=== PATIENT | female | born 1960 | race Caucasian/White ===

== ENCOUNTER 2022-05-16 09:25 | Outpatient (CLI) | payer OTHER, SELFPAY ==
[2022-05-16 14:30] LABS: Ferritin* 32.9 ng/mL (11.1-264.0)
== END 2022-05-16 09:26 | disposition home or self-care (01) ==
LOC: LONREF 09:26
PROVIDERS: PCP Family Medicine; Visit Provider Family Medicine
DX: I10 Essential (primary) hypertension (principal); G25.81 Restless legs syndrome
CPT/HCPCS: 82728

== ENCOUNTER 2022-07-13 12:52 | Emergency (ER) | payer OTHER, SELFPAY ==
[2022-07-13 13:18] VITALS: BP 148/90; PULSE 87; RESP 18; TEMP 37.4; O2SAT 96; BMI 27.0
--- NOTE | 2022-07-13 14:24 | CRLHL7_ITS ---
For Patients: As a result of the Century Cures Act, medical imaging exams and procedure reports are released immediately into your electronic medical record. You may view this report before your referring provider. If you have questions, please contact your health care provider. Indication: Fall Comparison: None available. Technique: AP, Lateral, and Oblique views right ankle were obtained Findings: There is a minimally displaced fracture of the distal fibula. No other displaced fracture is appreciated. The ankle mortise is symmetrical. The talar dome is smooth and intact. The joint spaces are otherwise grossly preserved. There is moderate malleolar soft tissue swelling. Impression: Minimally displaced fracture of the distal fibula with moderate malleolar soft tissue swelling. Dictated by Jesse Sow MD @ 07/13/2022 3:04:40 PM (Electronically Signed)
--- NOTE | 2022-07-13 14:24 | ED_ITS ---
HPI - Fall General Chief Complaint: Fall/Minor Trauma Stated Complaint: Injured RT ankle Time Seen by Provider: 07/13/22 12:56 History of Present Illness HPI Narrative: This 62-year-old female comes in with an injury to her right ankle that occurred this morning. She was at home and stood up and began to walk. She started to feel lightheaded and was staggering a bit. She grabbed onto a railing to try to stabilize herself but had then brief loss of consciousness. She fell to the [facility] injuring her right ankle. Her came immediately thereafter and she recovered from her loss of consciousness quickly. She has pain in her right ankle and has not wanted to put weight on since this injury. As for the loss of consciousness she states that she has been feeling lightheaded over the past couple months since having her antihypertensive medicines increased. She has not had loss of consciousness till today. She does not report any chest pain or shortness of breath. She did get a COVID vaccination recently. Related Data Home Medications Medication Instructions Recorded Confirmed albuterol sulfate 90 mcg/actuation 2 puff inhalation Q4H PRN 05/11/22 06/14/22 aerosol inhaler (ProAir HFA) aspirin 81 mg capsule 81 mg PO QDAY 05/11/22 06/14/22 calcium citrate 315 mg 3 tab PO QDAY 05/11/22 06/14/22 calcium-vitamin D3 6.25 mcg (250 unit) tablet (Citracal + Vitamin D Maximum) cholecalciferol (vitamin D3) 25 25 mcg PO QDAY 05/11/22 06/14/22 mcg (1,000 unit) capsule fluticasone 500 mcg-salmeterol 50 1 inh inhalation DAILY 05/11/22 06/14/22 mcg/dose blistr powdr for inhalation (Advair Diskus) hydrochlorothiazide 25 mg tablet 25 mg PO QDAY 05/11/22 06/14/22 lansoprazole 30 mg capsule,delayed 30 mg PO QDAY 05/11/22 06/14/22 release (Prevacid) multivitamin 1 tab PO QDAY 05/11/22 06/14/22 nitroglycerin 0.4 mg sublingual 0.4 mg sublingual ONCE PRN 05/11/22 06/14/22 tablet (Nitrostat) oxybutynin chloride 5 mg tablet 5 mg PO QDAY 05/11/22 06/14/22 potassium chloride 20 mEq 20 meq PO QDAY 05/11/22 06/14/22 tablet,extended release(part/cryst) (Klor-Con M) pravastatin 40 mg tablet 40 mg PO . 05/11/22 06/14/22 trazodone 50 mg tablet 50 mg PO . 05/11/22 06/14/22 venlafaxine 150 mg 150 mg PO QDAY 05/11/22 06/14/22 capsule,extended release 24 hr (Effexor XR) clobetasol 0.05 % topical ointment 1 applic topical BID 05/16/22 06/14/22 Previous Rx's Medication Instructions Recorded alprazolam 0.5 mg tablet 0.5 mg PO TID PRN anxiety #30 tabs 05/14/22 losartan 100 mg tablet 100 mg PO QDAY #90 tabs 05/16/22 Cam Walker #1 ea 07/13/22 Crutches- Adult #1 ea 07/13/22 hydrocodone 5 mg-acetaminophen 325 1 tab PO Q4-6H PRN pain #20 tabs 07/13/22 mg tablet Allergies Allergy/AdvReac Type Severity Reaction Status Date / Time atorvastatin Allergy Mild mylagia Verified 06/14/22 09:36 cephalexin Allergy Unknown Verified 06/14/22 09:36 latex Allergy Unknown Verified 06/14/22 09:36 Penicillins Allergy Unknown Verified 06/14/22 09:36 Shellfish Allergy Severe Shortness Uncoded 06/14/22 09:36 of Breath Shellfish Allergy Allergy Severe SOB Uncoded 06/14/22 09:36 Penicillin Allergy Unknown Unknown Uncoded 06/14/22 09:36 Review of Systems Status of ROS: Reports: 10 or more systems reviewed and unremarkable except as noted in History and below Narrative: Constitutional: No fevers, no weight gain or loss. Eyes: No discharge. No vision changes. HENT: No congestion, no sore throat, no ear pain. Cardiovascular: No chest pain, no palpitations. Respiratory: No shortness of breath, no wheezes, no cough. Gastrointestinal: No abdominal pain, no vomiting, no diarrhea. Genitourinary: No dysuria, no hematuria. Musculoskeletal: Right ankle injury. Skin: No rashes, no pruritis. Neurological: No weakness, sensory change, speech change. Lightheaded episodes over the past couple months since increasing blood pressure medications. Endo/Heme/Allergies: No bruising or bleeding. No polydipsia. Pysch: no suicidality, no anxiety, no insomnia. All other systems reviewed and are negative. [facility] Medical History (Updated 07/13/22 @ 15:04 by Cristino Ramirez MD) Acute anal fissure History of alcohol abuse History of endometriosis Surgical History History of coronary artery stent placement (01/14/15) Status post appendectomy Status post cholecystectomy Status post hysterectomy with oophorectomy (10/2008) Status post shoulder surgery (2016) Status post wrist surgery Family History Other Breast cancer Diabetes Social History Smoking Status: Never smoker Do you use any of these nicotine containing products: None How often do you have a drink containing alcohol: monthly or less AUDIT-C Alcohol total score: 1 Non-prescribed substance use: denies use Exam Narrative: Exam Narrative: Constitutional: Well-developed, well-nourished, no acute distress. HEENT: Normocephalic, atraumatic. Neck: Normal range of motion. Nontender. Supple. Heart: Regular. No murmurs. Normal rate. Intact distal pulses. Lungs: Clear to auscultation. No chest discomfort. No wheezes, rhonchi, or rales. Abdomen: Normal bowel sounds. Nontender. No rebound tenderness. Genitalia: Deferred. Back: No midline tenderness. Normal range of motion. Extremities: Right ankle pain over the lateral malleolus. There is no sign of swelling, joint effusion, or joint instability. Skin: Intact. No rash. Warm. No erythema or pallor. Neurologic: No altered sensation. No weakness. Alert and oriented. Psychiatric: No suicidality. No anxiety or depression. No insomnia. Nursing notes and vitals signs are reviewed. Const: Vital Signs, click to edit/add: Vital Signs - 24 hr 07/13/22 13:18 Temperature 99.4 F Pulse Rate [Pulse Oximeter] 87 Respiratory Rate 18 Blood Pressure [Le ft Upper Arm] 148/90 H Pulse Oximetry 96 Oxygen Delivery Me thod Room Air Course Vital Signs Vital signs: Initial Vital Signs Temperature 99.4 F 07/13/22 13:18 Temperature Source Temporal Artery Scan 07/13/22 13:18 Pulse Rate 87 07/13/22 13:18 Pulse Rhythm 07/13/22 13:18 Respiratory Rate 18 07/13/22 13:18 Blood Pressure 148/90 H 07/13/22 13:18 Blood Pressure Mean 109 07/13/22 13:18 Blood Pressure Position Sitting 07/13/22 13:18 Pulse Oximetry 96 07/13/22 13:18 Oxygen Delivery Method 07/13/22 13:18 Vital Signs Temperature 99.4 F 07/13/22 13:18 Pulse Rate 87 07/13/22 13:18 Respiratory Rate 18 07/13/22 13:18 Blood Pressure 148/90 H 07/13/22 13:18 Pulse Oximetry 96 07/13/22 13:18 Oxygen Delivery Method 07/13/22 13:18 Temperature 99.4 F 07/13/22 13:18 Pulse Rate 87 07/13/22 13:18 Respiratory Rate 18 07/13/22 13:18 Blood Pressure 148/90 H 07/13/22 13:18 Pulse Oximetry 96 07/13/22 13:18 Oxygen Delivery Method 07/13/22 13:18 MDM - Fall MDM Narrative Medical decision making narrative: This patient had a syncopal event with prodrome. I discussed lab and imaging options to workup this event. In a process of shared decision making she declined this for now. She is advised to back off on her blood pressure dosing to the previous level she was taking as since it was increased a few months ago she has been having repeated episodes of lightheadedness. I advised her to follow-up with her primary physician with recordings of her blood pressure to better manage her hypertension going forward. X-ray of the right ankle shows a fracture of the distal fibula. Patient was placed in a Cam walker boot and crutches are provided. She also received a prescription for Fosters and a tablet for the same during her stay here in the emergency department. Follow-up arrangements with orthopedic clinic are made also. Imaging Data XR R Ankle: My impression: Oblique fracture of the distal right fibula with minimal displacement. Discharge Plan Discharge Clinical Impression: Syncope, Ankle fracture, right Patient Disposition: Home, Self-Care Condition: Stable Additional Instructions: Wear walking boot and use crutches as needed. Take medication as needed and indicated. Follow up with orthopedic clinic as scheduled. Follow-up with primary physician to review antihypertensive medications. Prescriptions: New hydrocodone-acetaminophen 5-325 mg tablet 1 tab PO Q4-6H PRN (Reason: pain) Qty: 20 0RF (DME) Crutches- Adult Misc See Rx Instructions .ROUTE .MEDSUPPLY Qty: 1 0RF Rx Instructions: As directed (DME) Cam Walker Misc See Rx Instructions .ROUTE .MEDSUPPLY Qty: 1 0RF Rx Instructions: As directed No Action clobetasol 0.05 % ointment 1 applic topical BID losartan 100 mg tablet 100 mg PO QDAY Qty: 90 3RF fluticasone propion-salmeterol [Advair Diskus] 500-50 mcg/dose blister with device 1 inh inhalation DAILY hydrochlorothiazide 25 mg tablet 25 mg PO QDAY lansoprazole [Prevacid] 30 mg capsule,delayed release(DR/EC) 30 mg PO QDAY oxybutynin chloride 5 mg tablet 5 mg PO QDAY potassium chloride [Klor-Con M20] 20 mEq tablet,ER particles/crystals 20 meq PO QDAY pravastatin 40 mg tablet 40 mg PO .HS trazodone 50 mg tablet 50 mg PO .HS venlafaxine [Effexor XR] 150 mg capsule,extended release 24hr 150 mg PO QDAY nitroglycerin [Nitrostat] 0.4 mg tablet, sublingual 0.4 mg sublingual ONCE PRN Rx Instructions: as a single dose; administer 5-10 minutes before situation known to precipitate angina attack albuterol sulfate [ProAir HFA] 90 mcg/actuation HFA aerosol inhaler 2 puff inhalation Q4H PRN calcium citrate-vitamin D3 [Citracal + D Maximum] 315 mg-6.25 mcg (250 unit) tablet 3 tab PO QDAY cholecalciferol (vitamin D3) 25 mcg (1,000 unit) capsule 25 mcg PO QDAY aspirin 81 mg capsule 81 mg PO QDAY multivitamin Tablet 1 tab PO QDAY alprazolam 0.5 mg tablet 0.5 mg PO TID PRN (Reason: anxiety) Qty: 30 1RF Follow Up/Referrals: Cristino Lipscomb MD [Primary Care Provider] - Stand Alone Forms: [employer] Info Instructions
[2022-07-13] MEDS: HYDROCODONE-ACETAMIN 5-325 MG 1 TAB PO (15:23)
--- NOTE | 2022-07-13 15:36 | ED.NURSE ---
Patient was placed in Cam boot and was shown crutch walking with crutches. Ortho appointment was made for follow up and card reminder was given to patient.
== END 2022-07-13 15:43 | disposition home or self-care (01) ==
LOC: ED 15:10
PROVIDERS: Emergency Provider Emergency Medicine Emergency Medical Services; PCP Family Medicine
DX: R55 Syncope and collapse (principal); S82.64XA Nondisplaced fracture of lateral malleolus of right fibula, initial encounter for closed fracture
CPT/HCPCS: 73610; 99284; 99285; A9270

== ENCOUNTER 2022-07-20 11:24 | Outpatient (CLI) | payer OTHER, SELFPAY ==
[2022-07-20 14:40] LABS: Basophils Absolute Auto 0.05 K/uL (0.00-0.30); Basophils Percent Auto 0.7 % (0.0-3.0); Chloride* 102 mmol/L (96-114); Eosinophils Absolute Auto 0.36 K/uL (0.00-0.50); Eosinophils Percent Auto 4.7 % (0.0-7.0); Hematocrit 40.9 % (33.0-51.0); Hemoglobin* 13.8 gm/dL (12.0-16.0); Immature Granulocytes Abs Auto 0.03 K/uL (0.00-0.30); Lymphocytes Absolute Auto 2.66 K/uL (0.90-2.90); Lymphocytes Percent Auto 34.6 % (20-44); Mean Corpuscular HGB Conc 34 gm/dL (32-36); Mean Corpuscular Hemoglobin 30 pg (26-34); Mean Corpuscular Volume 89 fL (80-100); Monocytes Percent Auto 8.2 % (0.0-11.0); Neutrophils Absolute Auto 3.95 K/uL (1.7-7.0); Neutrophils Percent Auto 51.4 % (42.0-72.0); Platelet Count* 305 K/uL (140-440); Potassium* 4.1 mmol/L (3.6-5.1); RDW Coefficient of Variation % 12.8 % (11.5-15.5); Sodium* 136 mmol/L (135-149); White Blood Count* 7.68 K/uL (4.50-11.00)
[2022-07-20 14:43] LABS: Creatinine* 0.8 mg/dL (0.5-1.5); Estimated Glomerular Filt Rate 84 ml/min
[2022-07-20 14:44] LABS: Blood Urea Nitrogen* 15 mg/dL (7-30); Calcium* 9.6 mg/dL (8.4-10.6); Carbon Dioxide* 24 mmol/L (20-32); Glucose* 92 mg/dL (60-115)
[2022-07-20 14:46] LABS: Slide Review Reflex No
[2022-07-20 15:12] LABS: SARS PCR* Negative SARS-CoV-2 (Negative)
== END 2022-07-20 11:25 | disposition home or self-care (01) ==
PROVIDERS: PCP Family Medicine; Visit Provider Nurse Practitioner Family
DX: Z20.822 Contact with and (suspected) exposure to COVID-19 (principal); Z01.818 Encounter for other preprocedural examination
CPT/HCPCS: 36415; 80048; 85025; 87635

== ENCOUNTER 2022-07-21 09:50 | Day surgery (SDC) | payer OTHER, SELFPAY ==
[2022-07-21] VITALS (19 sets, daily range): BP systolic 118–143; BP diastolic 76–93; PULSE 61–81; RESP 12–17; TEMP 35.6–36.4; O2SAT 93–99; BMI 28.5
[2022-07-21] MEDS: LACTATED RINGERS 1000 ML 1,000 ML 100 ML IV (10:20)
[2022-07-21] MEDS: SODIUM CHLORIDE 0.9 % (FLUSH) 10 ML SYRINGE IVF (10:20)
[2022-07-21] MEDS: MIDAZOLAM HCL 1 MG/ML inj IVP (10:35)
[2022-07-21] MEDS: fentaNYL 100 MCG/2 ML inj IVP (10:35)
--- NOTE | 2022-07-21 10:51 | SUR.PREOP ---
TIME?OUT:?1034 PT/RN/MDA?VERIFICATION?OF?SURGICAL?SITE,?PROCEDURE,?AND?CONSENT OBTAINED?PRIOR?TO?INVASIVE?PROCEDURE.
--- NOTE | 2022-07-21 10:57 | W.PM.NB ---
Nerve Block Nerve Block Time Seen by Provider: 10:35 Date Seen: 07/21/22 Type of block requested by surgeon for post-operative analgesia: adductor canal Side: right Time out performed: Yes Verification of patient name: Yes Verification of date of : Yes Site marking: site marked Name of person performing procedure: Chago Thorne Continuous monitoring Was continuous monitoring of O2 sat, B/P, tennis net maker, recorded every 15 minutes?: Yes Procedure Checklist: sterile prep, needles and gloves Ultrasound guided. Images saved: Yes Medications given in 5ml increments after negative aspiration: Ropivicaine %: 0.5 mL: 15 Needle gauge: 20 Decadron (mg): 5 Patient tolerated procedure well: Yes Block Charges Block Charge (with Pro Fee): Femoral Nerve Use of Ultrasound Machine for Block: Yes- US Guidance/pain block
--- NOTE | 2022-07-21 11:00 | W.PM.NB ---
Nerve Block Nerve Block Type of block requested by surgeon for post-operative analgesia: popliteal Side: right Time out performed: Yes Verification of patient name: Yes Verification of date of : Yes Site marking: site marked Name of person performing procedure: Chago Thorne Continuous monitoring Was continuous monitoring of O2 sat, B/P, laboratory monitor, recorded every 15 minutes?: Yes Procedure Checklist: sterile prep, needles and gloves Ultrasound guided. Images saved: Yes Medications given in 5ml increments after negative aspiration: Ropivicaine %: 0.5 mL: 15 Needle gauge: 20 Decadron (mg): 5 Patient tolerated procedure well: Yes Block Charges Block Charge (with Pro Fee): Sciatic Nerve Use of Ultrasound Machine for Block: Yes- US Guidance/pain block
--- NOTE | 2022-07-21 11:12 | CRLHL7_ITS ---
For Patients: As a result of the Century Cures Act, medical imaging exams and procedure reports are released immediately into your electronic medical record. You may view this report before your referring provider. If you have questions, please contact your health care provider. INDICATION: Orthopedic intervention. TECHNIQUE: Fluoroscopic support provided for orthopedic intervention; 2 minutes and 5 seconds of fluoroscopy time utilized with 3 images archived. IMPRESSION: Fluoroscopic support for fibular internal fixation. Please see procedural note for further details. Dictated by Fabian Rojas MD @ 07/27/2022 8:27:28 AM (Electronically Signed)
[2022-07-21] MEDS: CLINDAMYCIN 900 MG/50 ML-D5W IVPB (11:40)
--- NOTE | 2022-07-21 13:30 | PM.ORPRC ---
Procedure Note Date of procedure: 07/21/22 Procedure: SURGEON: Enoch Arreola MD DIRECT SERVICE PROVIDER: Serena Loya PA-C PREOPERATIVE DIAGNOSIS: Right ankle Rollins B ankle fracture POSTOPERATIVE DIAGNOSIS: Right ankle Rollins B ankle fracture NAME OF OPERATION: ORIF ANESTHESIA: Spinal plus popliteal block ESTIMATED BLOOD LOSS: 0 mL COMPLICATIONS: None SPECIMENS: None DRAINS: None PREOPERATIVE ANTIBIOTICS: Ancef 2 g INDICATIONS: The patient is a 62-year-old female who sustained a right ankle fracture. ORIF was recommended. The risks, benefits and expected outcomes were discussed in detail. These included but were not limited to: Infection, bleeding, injury to blood vessel or nerve, venous thromboembolism. All questions were answered to their satisfaction. Use of an senior sales assistant was necessary throughout the case for patient positioning and safety, soft tissue retraction and closure. PROCEDURE: A popliteal block was placed by anesthesia. Spinal anesthesia was administered. The lower extremity was prepped and draped in the usual sterile fashion. A guide pin was placed in the center of the distal fragment of the fibula, percutaneously. Its placement was confirmed with the image intensifier in multiple views. A stab incision was made around the guide pin. The opening Reamer was used. The guide pin was removed. A stab incision was made over the anterior and posterior aspect of the fibula, at the fracture site. A lobster claw reduction clamp was used to obtain an anatomic reduction. The reduction finger was placed in the distal fragment. The reduction finger was taken across the fracture site. The longer, flexible guide pin was placed across the fracture, engaging the canal of the proximal fragment. The 3.2 mm reamer was used in the proximal fragment. The canal was quite small and difficult to ream. This resulted in breaking guide pin off. We spent 20-30 minutes trying to retrieve the broken piece of guide pin using urology and gynecology graspers. We were unsuccessful in removing it. Therefore we elected to leave it in place. We placed the Arthrex 3 mm x 130 mm intramedullary nail. This was able to get past broken piece of guide pin. The talons were deployed. We placed 2 screws in the distal fragment. The political science instructor and screw guide were removed, the end cap was placed. This provides an anatomic reduction of the fibula with excellent fixation. This construct was imaged in the AP, mortise and lateral views and felt to be well placed with an excellent reduction. The talus is nicely reduced under the tibial plafond. The wounds were irrigated with normal saline. The senior sales assistant closed the skin with a 4-0 Monocryl in a subcuticular fashion. Glue was used to seal the skin. The senior sales assistant placed a dry dressing and short leg Ronaldo Jacques splint. Sponge and needle counts were correct x 2. The patient tolerated the procedure well. There were no apparent complications. They were carefully transferred to the hospital bed and taken to the postanesthesia care unit in satisfactory condition. PLAN: The patient will be discharged to home. They will remain strict nonweightbearing on the lower extremity. They will continue to work on ice and elevation. They will follow up in the office in 2 weeks for a wound check and three views of the ankle out of the splint, prior to being seen, in preparation for a CAM walker, early weight-bearing and physical therapy.
--- NOTE | 2022-07-21 13:38 | W.ANESCHARGE ---
Anesthesia Charges Start Date/Time Anesthesia Start Date: 07/21/22 Anesthesia Start Time: 11:30 Stop Date/Time Anesthesia Stop Date: 07/21/22 Anesthesia Stop Time: 13:45 Summary Emergency: No
--- NOTE | 2022-07-21 14:25 | SUR.PHASEI ---
patient met discharge criteria per anesthesia
== END 2022-07-21 15:40 | disposition home or self-care (01) ==
PROVIDERS: PCP Family Medicine; Visit Provider Orthopaedic Surgery
PROC: (CPT 27792; principal; 2022-07-21 12:15)
DX: S82.891A Other fracture of right lower leg, initial encounter for closed fracture (principal)
CPT/HCPCS: 27792; 01462; 64445; 64447; 73610; 76000; 76942; C1713; J1100; J2250; J2370; J2400; J2405; J2704; J2795; J3010; J7120; S0077

== ENCOUNTER 2022-08-09 09:39 | Outpatient (RCR) | payer OTHER, SELFPAY | END 2023-04-12 23:59 | disposition home or self-care (01) | PROVIDERS: PCP Family Medicine; Visit Provider Orthopaedic Surgery | DX: S82.891D Other fracture of right lower leg, subsequent encounter for closed fracture with routine healing (principal); M25.571 Pain in right ankle and joints of right foot; M25.671 Stiffness of right ankle, not elsewhere classified; Z51.89 Encounter for other specified aftercare | CPT/HCPCS: 97110; 97140; 97161 ==

== ENCOUNTER 2024-01-23 08:52 | Outpatient (CLI) | payer OTHER, SELFPAY ==
--- NOTE | 2024-01-23 09:15 | MM_ITS ---
Patient: LOUISE GRANADOS Facility:?[facility] Patient ID:?[id number] Site Patient ID:?[id number]. Site :?[id number] Study:?XRay-Breast Bilateral 3D W/CAD-01/23/2024 9:23:36 AM Ordering Physician:Cristino Kingston Final Report: BILATERAL SCREENING MAMMOGRAM WITH COMPUTER-AIDED DETECTION AND TOMOSYNTHESIS TECHNIQUE: CC and MLO views were obtained. These mammographic images have been obtained using full-field digital technique. These mammographic images were interpreted with the benefit of computer-aided detection. Breast Tomosynthesis was used in this interpretation. COMPARISON FILM 08/26/21, 08/04/20, 04/23/19. FINDINGS: There are scattered areas of fibroglandular density. IMPRESSION: There is no radiographic evidence for malignancy. ASSESSMENT: BI-RADS Category 1: Negative RECOMMENDATION: Routine screening mammogram in 1 year. A lay language report of this examination will be provided to the patient. Hamilton Ibarra M.D. Diagnostic Radiologist [email or web address] DSM/sp R& Transcribed: 5:10 p.m. SP/Dictated by: Hamilton Ibarra MD @ 01/23/2024 12:36:00 PM Signed by:?Hamilton Ibarra MD @01/23/2024 6:52:39 PM (Electronic Signature)
== END 2024-01-23 08:53 | disposition home or self-care (01) ==
LOC: MAMMO 08:53
PROVIDERS: PCP Family Medicine; Visit Provider Family Medicine
DX: Z12.31 Encounter for screening mammogram for malignant neoplasm of breast (principal)
CPT/HCPCS: 77063; 77067

== ENCOUNTER 2024-03-06 14:05 | Outpatient (CLI) | payer OTHER, SELFPAY | END 2024-03-06 14:06 | disposition home or self-care (01) | PROVIDERS: PCP Family Medicine; Visit Provider Nurse Practitioner Family | DX: I25.10 Atherosclerotic heart disease of native coronary artery without angina pectoris (principal); R53.83 Other fatigue | CPT/HCPCS: 80061; 84443 ==

== ENCOUNTER 2024-07-02 15:08 | Outpatient (CLI) | payer OTHER, SELFPAY ==
--- NOTE | 2024-07-02 15:30 | CRLHL7_ITS ---
For Patients: As a result of the Century Cures Act, medical imaging exams and procedure reports are released immediately into your electronic medical record. You may view this report before your referring provider. If you have questions, please contact your health care provider. DXA BONE MINERAL DENSITY STUDY Current height (in): 66.0. Weight (lb): 172.0. Menopause age: 48. Ethnicity: White. 1. Have you had a previous hip or vertebral fracture? No. 2. Have you had any fractures during your adult life which did not result from significant trauma (e.g., auto accident)? Yes. 3. Did either of your parents have a hip fracture? No. 4. Do you smoke? No. 5. Have you ever taken Glucocorticoids? No. 6. Do you have rheumatoid arthritis? No. 7. Do you have secondary osteoporosis? No. 8. Do you drink 3 or more alcoholic drinks per day? No. 9. Are you being treated for osteoporosis? No. 10. Have you ever taken any of the following medications: Actonel, Evista, Fosamax, Miacalcin, Reclast, Boniva, Forteo, HRT (i.e. estrogen/hormone therapy), Protelos, Prolia, Vitamin D, Calcium, other ??? please specify. ANSWER: Yes, Vitamin D and Calcium. 11. Do you have any of the following medical conditions: Anorexia or bulimia, asthma or emphysema, end stage renal disease, hyperparathyroidism, any seizure disorders, cancer, inflammatory bowel diseases, hysterectomy, other ??? please specify. ANSWER: Yes, Asthma or emphysema, hysterectomy. 12. What was your maximum height (inches)? 67. 13. Do you perform weight bearing exercise regularly? No. 14. Do you regularly consume dairy products? Yes. 15. Do you drink caffeinated beverages? Yes. If female: 16. At what age did your period start? 15. 17. Are you premenopausal? No. 18. How many full term pregnancies have you had? 1. 19. Have you ever missed your period for more than 6 months in a row (not including or menopause)? No. TECHNIQUE: Bone mineral density study was performed using the [employer]. FINDINGS: The results of the study expressed as bone mineral density (BMD) are as follows: Lumbar spine L1 to L4: BMD: 1.003 g/cm2. T-score: -0.4. Z-score: 1.2. Neck Left: BMD: 0.787 g/cm2. T-score: -0.6 . Z-score: 0.8. Right: BMD: 0.732 g/cm2. T-score: -1.1 . Z-score: 0.3. Total Left: BMD: 1.009 g/cm2. T-score: 0.5 . Z-score: 1.6. Right: BMD: 0.941 g/cm2. T-score: -0.0 . Z-score: 1.1. IMPRESSION: Osteopenia. *Comparison exams done prior to 02/2020 were performed on different unit, [employer]. FRAX 10-year Fracture Risk Major Osteoporotic Fracture: 13 percent Hip Fracture: 0.8 percent Reported Risk Factors: US () Neck BMD=0.732, BMI=27.8 Hamilton Ibarra M.D. Diagnostic Radiologist [email or web address] JR/Dictated by: Hamilton Ibarra MD @ 07/03/2024 9:47:00 AM (Electronically Signed)
== END 2024-07-02 15:09 | disposition home or self-care (01) ==
LOC: RAD 15:09
PROVIDERS: PCP Family Medicine; Visit Provider Family Medicine
DX: Z13.820 Encounter for screening for osteoporosis (principal); M85.89 Other specified disorders of bone density and structure, multiple sites
CPT/HCPCS: 77080

== ENCOUNTER 2024-07-09 10:55 | Outpatient (CLI) | payer OTHER, SELFPAY | END 2024-07-09 10:56 | disposition home or self-care (01) | LOC: NFLDREF 07-12 23:01 | PROVIDERS: PCP Family Medicine; Referring Provider Family Medicine; Visit Provider Family Medicine | DX: Z13.0 Encounter for screening for diseases of the blood and blood-forming organs and certain disorders involving the immune mechanism (principal) | CPT/HCPCS: 82728 ==

== ENCOUNTER 2025-03-03 14:49 | Outpatient (CLI) | payer OTHER, SELFPAY ==
--- NOTE | 2025-03-03 15:00 | CRLHL7_ITS ---
For Patients: As a result of the Century Cures Act, medical imaging exams and procedure reports are released immediately into your electronic medical record. You may view this report before your referring provider. If you have questions, please contact your health care provider. INDICATION: BILATERAL SCREENING MAMMOGRAM, ASYMPTOMATIC 64Y/F COMPARISON: 01/23/24, 08/26/21, 04/23/19 TECHNIQUE: Digital mammogram in CC and MLO projections including computer-aided detection (CAD) and tomosynthesis. BREAST COMPOSITION: There are scattered areas of fibroglandular density. FINDINGS: No suspicious findings. ASSESSMENT: BI-RADS 2 Benign RECOMMENDATION: Annual screening mammogram. A lay language report of this examination will be provided to the patient. Dictated by: Hamilton Ibarra MD @ 03/05/2025 11:29:45 (Electronically Signed)
== END 2025-03-03 14:50 | disposition home or self-care (01) ==
LOC: MAMMO 14:50
PROVIDERS: PCP Family Medicine; Visit Provider Family Medicine
DX: Z12.31 Encounter for screening mammogram for malignant neoplasm of breast (principal)
CPT/HCPCS: 77063; 77067

== ENCOUNTER 2025-03-11 10:23 | Outpatient (CLI) | payer OTHER, SELFPAY | END 2025-03-11 10:24 | disposition home or self-care (01) | LOC: FRMREF 10:25 | PROVIDERS: PCP Family Medicine; Visit Provider Nurse Practitioner Family | DX: I10 Essential (primary) hypertension (principal); E78.5 Hyperlipidemia, unspecified; R73.9 Hyperglycemia, unspecified; R53.83 Other fatigue | CPT/HCPCS: 80053; 80061; 82728 ==

== ENCOUNTER 2025-05-29 10:30 | Outpatient (RCR) | payer OTHER, SELFPAY ==
--- NOTE | 2025-04-23 09:12 | PT.OPEX ---
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 She had increased pain lying on that side, lifting to the side, overhead or reaching behind her. Ibuprofen doesn't help a lot, maybe a bit. Ice helps a bit, not using it regularly. Bio Pain Comments Pain R shldr with lifting arm to the side, reaching behind her towards pocket or trying to clasp her bra. Also hurts lifting objects or leaning on elbow on car ledge. Pain 2-10, varies. Date of Last 04/08/25 Physician Visit Current Work Status Retired Precautions Weight Bearing Full Weight Bearing Status Therapy Limitations/ Not Limited Systems Review Objective Range of Motion R shldr flex 0-160 abd 0-150 pain ER 0-75 IR to back pocket, pain L shldr 5/5 B elbow/wrist/hands 5/5 Strength R shldr flex 5/5 abd 4/5 pain add 5/5 ER 4+/5 pain IR 4-/5 pain ext 4/5 L shldr 5/5 B elbow/wrist/hand 5/5 Swelling no edema Palpation supraspinatus insertion teres minor/major/infraspinatus all tender Balance & Gait Gait unremarkable Balance-no concerns Posture fwd head, slight rounding of thoracic region Sensation/Reflexes intact to light touch Other/Pertinent +Neers R Objective +Leiva R empty can R neg drop arm R neg Yergason's R neg Lift off R neg Functional Test SPADI 30.8%, 40/30 mainly IR and overhead reaching Performed & Score Assessment Assessment/ 65 year old female is referred by Dr. Arreola due to R Impression shldr pain/bursitis. She has PMHx of R shldr RTC Leon 2017, coronary stent, restless legs, ETOH abuse(in remission), hyperlipidemia, anxiety, depression, NonSTEMI, CAD, anal fissure, GERD and asthma. + Latex allergy. Pain gradually came on R shldr doing tasks such as mowing, etc while spouse recovered from his own shldr surgery and also lifting her father who she was caring for. Pain increased with lifting a gallon of milk, lying on R arm at night and hooking her bra. Pain ranges from 2-10 depending on what she is doing. She saw Dr. Arreola who dx R shldr bursitis, ordered PT. Plan for MRI if pain does not resolve. Pt presents with pain R shldr abd at 90, IR, report of clicking R shldr with ex, impaired strength, +impingement tests. Issued ex for posture and posture education provided due to rnded shldrs, elevated and abducted scaps. Pt has ex for posture, ROM, scap stability and will benefit from weekly PT to improve alignment, posture, scap strength, regain full AROM and strength painfree R shldr no painful arc. Primary Functional pain with ADLS/hooking bra, lifting arm yousuf if lifting Limitations an item, resting arm on car window ledge. Anything yousuf reaching behind her/IR and abducting to 90. Overall arm fatigues. Plan of Care Rehabilitation Good Potential Rehabilitation Access Code: [email or web address] Potential Comments URL: [email or web address] Date: 04/23/2025 Prepared by: Rose Baker Exercises - Seated Shoulder Shrugs - 2 x daily - 7 x weekly - 1 sets - 10 reps - Seated Shoulder Rolls - 2 x daily - 7 x weekly - 1 sets - 10 reps - Seated Scapular Retraction - 1 x daily - 7 x weekly - 1-2 sets - 10 reps - Seated Shoulder Flexion AAROM with Danita Behind - 2 x daily - 7 x weekly - 1-2 sets - 10 reps - Seated Shoulder Scaption AAROM with Danita at Side - 2 x daily - 7 x weekly - 1-2 sets - 10 reps Physical Therapy Within 6 weeks: Goals Pt will have 0-170 degrees shoulder flexion and abduction, ER 0-70 degrees and IR of shoulder WNL for independence in ADLs. Pt will have return of surgical shoulder strength to functional level to allow independence in ADLs and work -related tasks. Coordination/ Referral Source Communication With Treatment Plan/ Dry Needling,Electrical Stimulation,Heat,Ice/Cold/ Direct Interventions Vasopneumatic,Iontophoresis,Joint Mobilization,Manual Therapy,Neuromuscular Re-ed,Self-Care/Home Management, Therapeutic Activities,Therapeutic Exercises Frequency/Duration 1x/week x 6 weeks Patient Will Be Completion of LTG(s),Skills Plateau,Independent w/HEP, Discharged From Independently Progressing Therapy Evaluation Billing Untimed Code 20 Treatment Minutes PT Eval No Charge No Complexity Low Student Supervision Documentation Yes Reviewed By Yarding Engineer Certification Information Initial 04/23/25 Certification Date Ending Certification 07/21/25 Date Provider Signature Yes Required Provider Signature POC & Medical Necessity Shows Agreement With Physician NPI Number Write NPI# Here Physician Comment/ : Change Physician Signature Please Sign/Date Here & Date Requested
== END 2025-09-21 15:25 | disposition home or self-care (01) ==
PROVIDERS: PCP Family Medicine; Visit Provider Orthopaedic Surgery
DX: M75.51 Bursitis of right shoulder (principal); Z51.89 Encounter for other specified aftercare
CPT/HCPCS: 97110; 97140; 97161